=== PATIENT | female | born 1975 | race Caucasian/White ===

== ENCOUNTER 2016-11-14 19:47 | Emergency (ER) | payer OTHER ==
[~2016-11-14] VITALS: Ht 172.7 cm; Wt 100.0 kg
[2016-11-14 19:52] VITALS: BP 136/88; PULSE 95; RESP 16; O2SAT 96
--- NOTE | 2016-11-14 21:27 | ED.REPORT ---
HPI-General Illness Date of Service Nov 14, 2016 ED Provider: Dr. Ruiz Pt is a 41 year old female with a hx of chronic back pain, Achilles tendonitis, plantar fasciitis presenting to the ED complaining of bilateral feet pain onset 5 days ago. Associated symptoms include back pain due to decreased movement. Pain is exacerbated by movement and walking around. Denies any recent injury, although she states that she has been walking around wearing flip flops and not using her shoe inserts. Pt filled 70 Hydrocodone 7.5 mg on 11/[address] Kaye. Denies any fever or LE swelling. Pt takes Hydrocodone and Ibuprofen 800 mg for her back, Gabapentin, citalopram, and Ranidine. Nursing Notes Stated Complaint: BILATERAL FOOT PAIN AND LOWER BACK PAIN Chief Complaint: Extremity Trauma Nursing Notes Reviewed: Yes Allergies: Uncoded Allergies: PNEUMONA VACCINE (Allergy, Mild, Arm swelling, 11/14/16) WELBUTRIN (Adverse Reaction, Mild, Psychosis, 11/14/16) General Time Seen by MD: 21:26 Chief Complaint Other (Bilateral feet pain) Hx Obtained From: Patient Arrived By: Walk-in Sudden in Onset?: No Onset Occurred: 5 days ago Symptom Duration: Since onset Location: : Back: Foot left: Foot right Quality: Painful Severity: Current: Severe Severity: Maximum: Severe Recent Healthcare: No recent doctor visit, No recent hospitalization Similar Sx Previous: Yes Past Medical History Past Medical History Hx of chronic back pain, Achilles tendonitis and plantar fasciitis Reports: Asthma Past Surgical History Spinal fusion Smoking History Unknown if Ever Smoker Ambulatory Status Independent Review of Systems Full Review of Systems Constitutional: Denies: Fever Musculoskeletal: Reports: Back pain, Extremity pain, Denies: Extremity swelling Complete sys rev & neg: except as marked. Physical Exam Vital Signs Vital Signs Date Time Temp Pulse Resp B/P Pulse Ox O2 Delivery O2 Flow Rate FiO2 11/14/16 19:52 36.7 95 16 136/88 96 Room Air Initial VS: Reviewed General/Constitutional: Well-developed, Well-nourished Head / Eyes: Atraumatic, Normocephalic, PERRL ENT: Mucous membranes moist, Conjunctiva normal, No scleral icterus Neck: Supple, Non-tender, Full range of motion Respiratory: Breath sounds normal, Clear to auscultation, No respiratory distress Cardiovascular: Regular rate & rhythm, Heart sounds normal, Intact distal pulses Abdomen / GI: Soft, Non-tender, No guarding, No rebound, No distention Skin: Warm, Dry, No cyanosis Neurologic: Alert, Oriented, Nonfocal Psychiatric: Mood/affect normal, Behavior normal, Normal thought content Lower Extremity / Pelvis / MS: No swelling, No deformity, Neurologic intact, Vascular intact Feet visually appear normal. Pulses intact, no warmth. Re-Eval/Medical Decision Med Decision/Clinical Course 41-year-old female with chronic pain presenting with bilateral foot pain and examination I find entirely unremarkable. The patient reports that her pain is disabling as it hurts to walk. I do not see any evidence of an inflammatory process or infectious process in her lower extremities. She is already on chronic opiates, nonsteroidal anti-inflammatories and gabapentin. Has orthotics due to plantar fasciitis but has not been using them. She was very upset that I did not advise any additional medications for her pain. Will be seen by her primary care doctor in [place] on Thursday. Time of Eval: 22:20 Re-Evaluation/Progress Note: . Counseled Regarding: Diagnosis, Lab results, Need for follow-up, When/why to return to ED Discharge & Departure Primary Impression: Foot pain, bilateral Disposition: Home Discharge Condition All VS Reviewed: Yes Condition: Improved Additional Instructions: Emergency Department evaluation included interview and examination. We do not identify an acutely dangerous problem causing foot pain today. We advise continuing with previous pain management medications, ice and begin using insulin once again. Follow-up with podiatry and primary care soon. Return emergency Department for fever or leg swelling. Camilleibe Attestation Portions of this note were transcribed by Jennifer Saunders. I, Dr. Ruiz personally performed the history, physical exam and medical decision-making; I reviewed and confirmed the accuracy of the information in the transcribed note. Signed by : Oracio Ngo, 11/14/2016. Kal Ruiz MD Nov 14, 2016 21:27 JENNIFER SAUNDERS Nov 14, 2016 22:12
== END 2016-11-14 22:20 | disposition home or self-care (01) ==
LOC: SED 19:47
DX: M79.671 Pain in right foot (principal); M79.672 Pain in left foot; J45.909 Unspecified asthma, uncomplicated